=== PATIENT | female | born 1990 | race African-American/Black ===

== ENCOUNTER 2019-07-26 13:50 | Emergency (ER) | payer SELFPAY ==
[2019-07-26] MEDS ORDERED: HYDROcodone/Acetaminophen 10/325 mg Tablet ONE (14:12)
== END 2019-07-26 14:15 | disposition home or self-care (01) ==
LOC: ERS 13:50
DX: K02.9 Dental caries, unspecified (principal)
CPT/HCPCS: 99282

== ENCOUNTER 2019-12-30 09:18 | Emergency (ER) | payer SELFPAY ==
[2019-12-30] MEDS ORDERED: Dexamethasone 10 MG/ML VIAL ONE (09:35)
== END 2019-12-30 09:42 | disposition home or self-care (01) ==
LOC: ERS 09:18
DX: J18.9 Pneumonia, unspecified organism (principal)
CPT/HCPCS: 99283; J1100

== ENCOUNTER 2020-09-29 08:47 | Emergency (ER) | payer SELFPAY ==
[2020-09-29 17:10] LABS: SARS-CoV-2 MS2 Positive; SARS-CoV-2 N Gene Negative; SARS-CoV-2 S Gene Negative; SARS-CoV-2 by NAA Not Detected (NotDetected); SARS-CoV-2 orf1ab Negative
== END 2020-09-29 09:18 | disposition home or self-care (01) ==
LOC: ERS 08:47
DX: J02.9 Acute pharyngitis, unspecified (principal); R51.9 Headache, unspecified; R09.81 Nasal congestion; R05 Cough; Z20.828 Contact with and (suspected) exposure to other viral communicable diseases
CPT/HCPCS: 87635; 99283; U0003

== ENCOUNTER 2022-04-27 10:42 | Emergency (ER) | payer OTHER | END 2022-04-27 11:55 | disposition left against medical advice (07) | LOC: ERS 10:42 | DX: Z53.21 Procedure and treatment not carried out due to patient leaving prior to being seen by health care provider (principal) ==